=== PATIENT | male | born 1960 | race Caucasian/White ===

== ENCOUNTER → 2024-02-06 15:37 | Outpatient (REF) | payer MEDICARE, SELFPAY | LOC: PAVMRI 15:37 | PROVIDERS: ATTENDING PHYSICIAN Student in an Organized Health Care Education/Training Program; FAMILY PHYSICIAN Family Medicine | DX: M25.562 Pain in left knee (principal) | CPT/HCPCS: 73721 ==

== ENCOUNTER → 2024-09-25 15:25 | Outpatient (REF) | payer MEDICARE, SELFPAY | LOC: RAD 15:25 | PROVIDERS: ATTENDING PHYSICIAN Family Medicine | DX: Z13.6 Encounter for screening for cardiovascular disorders (principal) | CPT/HCPCS: 75571 ==

== ENCOUNTER → 2025-02-27 09:17 | Outpatient (REF) | payer MEDICARE, SELFPAY | LOC: HWRAD 09:17 | PROVIDERS: FAMILY PHYSICIAN Family Medicine | DX: R10.13 Epigastric pain (principal) | CPT/HCPCS: 76700 ==

== ENCOUNTER → 2025-03-21 08:59 | Outpatient (REF) | payer MEDICARE, SELFPAY | LOC: RAD 08:59 | PROVIDERS: ATTENDING PHYSICIAN Internal Medicine Gastroenterology; FAMILY PHYSICIAN Family Medicine | DX: R10.13 Epigastric pain (principal); R53.83 Other fatigue; R14.0 Abdominal distension (gaseous) | CPT/HCPCS: 74160; Q9967 ==

== ENCOUNTER → 2025-04-09 07:55 | Outpatient (REF) | payer MEDICARE, SELFPAY | LOC: RAD 07:55 | PROVIDERS: ATTENDING PHYSICIAN Internal Medicine Gastroenterology; FAMILY PHYSICIAN Family Medicine | DX: R10.13 Epigastric pain (principal); R14.0 Abdominal distension (gaseous) | CPT/HCPCS: 78227; A9537; J2805 ==